=== PATIENT | female | born 1960 | race Caucasian/White ===

== ENCOUNTER 2021-01-10 05:51 | Emergency (ER) | payer OTHER ==
[~2021-01-10 05:51] MED LIST: ONDANSETRON ODT4 MG PO; PERCOCET 7.5/321 TAB PO; SINEQUAN10 MG PO
[2021-01-10 06:57] LABS: ALBUMIN 3.7 g/dL (3.4-5.0); BILIRUBIN - TOTAL 0.3 mg/dL (0.2-1.0); CREATININE 0.81 mg/dL (0.51-0.95); GLOBULIN (CALCULATION) 3.1 g/dL; POTASSIUM 4.1 mmol/L (3.5-5.1); TOTAL PROTEIN 6.8 g/dL (6.4-8.2)
[2021-01-10 07:09] LABS: LACTIC ACID 1.6 mmol/L (0.4-1.9)
[2021-01-10 07:49] LABS: BASOPHIL 0.6 % (0-2); EOSINOPHIL 1.7 % (0-5); HCT 41.7 % (37.0-47.0); HGB 13.7 g/dl (12.5-16.0); LYMPHOCYTE 15.9 % (15-48); MCH 31.1 pg (25.0-31.0); MCHC 32.9 g/dL (32.0-36.0); MCV 94.8 fL (78.0-100.0); MONOCYTE 7.4 % (0-12); MPV 11.4 fL (6.0-9.5); NRBC 0; PLT 211 K/uL (150-400); RDW 13.2 % (11.5-14.0); WBC 8.1 K/uL (4.0-10.5)
[2021-01-10] MEDS ORDERED: AZITHROMYCIN250 MG PO (09:06)
== END 2021-01-10 09:18 | disposition home or self-care (01) ==
LOC: FER 05:51
PROVIDERS: Emergency Medicine
DX: R05.9 Cough, unspecified (principal); R06.2 Wheezing; R06.02 Shortness of breath; I10 Essential (primary) hypertension; Z20.822 Contact with and (suspected) exposure to COVID-19; Z87.891 Personal history of nicotine dependence
CPT/HCPCS: 36415; 71275; 80053; 83605; 84145; 84484; 85025; 87040; 93005; J1642; J2543; J2930; J3370; J7030; J7050; Q9967; U0002

== ENCOUNTER 2021-06-04 09:40 | Emergency (ER) | payer OTHER ==
[~2021-06-04 09:40] MED LIST changes: +AZITHROMYCIN250 MG PO
[2021-06-04] MEDS ORDERED: CEPHALEXIN500 MG PO (11:21)
[2021-06-04] MEDS ORDERED: BACTRIM DS TAB1 EACH PO (11:21)
== END 2021-06-04 11:32 | disposition home or self-care (01) ==
LOC: FER 09:40
DX: L02.416 Cutaneous abscess of left lower limb (principal); L03.116 Cellulitis of left lower limb; Z87.891 Personal history of nicotine dependence
CPT/HCPCS: 87070; 87205

== ENCOUNTER 2021-09-24 15:24 | Emergency (ER) | payer OTHER ==
[~2021-09-24 15:24] MED LIST changes: +BACTRIM DS TAB1 EACH PO; +CEPHALEXIN500 MG PO
[2021-09-24 16:44] LABS: BASOPHIL 0.7 % (0-2); EOSINOPHIL 0.4 % (0-5); HCT 40.2 % (37.0-47.0); HGB 13.4 g/dl (12.5-16.0); MCH 30.7 pg (25.0-31.0); MCHC 33.3 g/dL (32.0-36.0); MONOCYTE 4.1 % (0-12); MPV 10.9 fL (6.0-9.5); NEUTROPHIL 87.5 % (41-80); NRBC 0; PLT 219 K/uL (150-400); RBC 4.37 M/uL (4.20-5.40); RDW 12.7 % (11.5-14.0); WBC 10.4 K/uL (4.0-10.5)
[2021-09-24 16:55] LABS: ALBUMIN 3.7 g/dL (3.4-5.0); BILIRUBIN - TOTAL 0.3 mg/dL (0.2-1.0); BUN/CREAT RATIO (CALC) 19.5 RATIO; CREATININE 0.77 mg/dL (0.51-0.95); GLOBULIN (CALCULATION) 3.1 g/dL; POTASSIUM 3.8 mmol/L (3.5-5.1); TOTAL PROTEIN 6.8 g/dL (6.4-8.2)
[2021-09-24 17:30] LABS: CORONAVIRUS 2019 SARS-COV-2 NEGATIVE (NEGATIVE); INFLUENZA A NAA NEGATIVE (NEGATIVE)
[2021-09-24] MEDS ORDERED: DIFLUCAN150 MG PO (18:18)
[2021-09-24] MEDS ORDERED: VIBRAMYCIN100 MG PO (18:18)
[2021-09-24] MEDS ORDERED: MEDROL 4MG DOSEP4 MG PO (18:19)
== END 2021-09-24 18:35 | disposition home or self-care (01) ==
LOC: FER 15:24
PROVIDERS: Emergency Medicine
DX: J44.1 Chronic obstructive pulmonary disease with (acute) exacerbation (principal); I10 Essential (primary) hypertension; Z85.118 Personal history of other malignant neoplasm of bronchus and lung; Z20.822 Contact with and (suspected) exposure to COVID-19; Z28.310 Unvaccinated for COVID-19; Z87.891 Personal history of nicotine dependence; Z79.899 Other long term (current) drug therapy
CPT/HCPCS: 36415; 71045; 80053; 83880; 85025; J2405; J2930; U0002